=== PATIENT | male | born 1960 | race Caucasian/White ===

== ENCOUNTER 2022-03-25 18:54 | Emergency (ER) | payer OTHER ==
[2022-03-26] MEDS ORDERED: AMOXICILLIN500 MG PO (00:07)
[2022-03-26] MEDS ORDERED: TORADOL 10 MG T10 MG PO (00:09)
== END 2022-03-26 00:25 | disposition home or self-care (01) ==
LOC: ER1 18:54
DX: K08.89 Other specified disorders of teeth and supporting structures (principal); I10 Essential (primary) hypertension
CPT/HCPCS: 99282; J1885